=== PATIENT | female | born 1995 ===

== ENCOUNTER 2021-04-07 13:37 | Outpatient (CLI) | payer BC ==
--- NOTE | 2021-04-07 14:00 | XRAY Report ---
PROCEDURE: Finger(s) LT INDICATIONS: CRUSHING INJURY OF LT FINGER INITIAL ENCOUNTER TECHNIQUE: AP hand, 2 views of the second finger(s) acquired. COMPARISON: None FINDINGS: Bones: No fractures or dislocations. No suspicious bony lesions. Soft tissues: No suspicious soft tissue calcifications. IMPRESSION: No displaced fractures can be seen by plain film. Reviewed by: Thompson Sanchez MD on 04/07/2021 12:58 PM AKSHANELLE Approved by: Thompson Sanchez MD on 04/07/2021 12:58 PM AKSHANELLE Station ID: [id number]
== END 2021-04-07 13:38 | disposition home or self-care (01) ==
LOC: DI.S 13:37
PROVIDERS: ATTEND Physician Assistant
DX: S67.191A Crushing injury of left index finger, initial encounter (principal)